=== PATIENT | female | born 1990 ===

== ENCOUNTER 2018-01-12 09:37 | Emergency (ER) | payer MEDICAID, OTHER ==
[2016-04-29 00:10] VITALS: BMI 24.6
[2018-01-12] MEDS ORDERED: Lactated Ringer's 1,000 ML IV ONE (10:55)
--- NOTE | 2018-01-12 11:35 | OBHP ---
Datetime: 01/12/2018 11:28 IP Chief Complaint Other: back and righ tleg pain Admit Comment, IP Provider: _ 34 wks transfer to [place] reports has not recieged any prencta l cre. pt preots she was told there is a cyst. pt preort having back pain that strated htis brandi ordonez ramping in nature, every 10 minutes 09/15 denie sany lof, vb, +FM. pt preorts rihgt lower leg pain sin e her and dneis any cp, sob, dizzyness. 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 PMH: dneies PSH: denes FHX: non tocnitryb MEDS: none SHX: julia eoth/tobacc/drugs NKDA A/P @_ 34 wks with back pain npo, ivf labs cbc, ua, urine drug screen abdominal us efw/ evalutefor dmitry; xmass lower extermity doppler importnace of care Pelvic Type - PN: Adequate Extremities - PN: Normal Abdomen - PN: Normal Back - PN: Normal Breast - PN: Not Done Lungs - PN: Normal Heart - PN: Normal Thyroid - PN: Normal Neurologic - PN: Normal HEENT - PN: Normal General - PN: Normal FHR - Baseline A Provider: 150 Membranes, Provider: Intact Contraction Comments Provider: irritlaibty Gestation - Est Wks by US: 34.0 EGA AdmitDate IP: 34.0 Vital Signs Provider: Reviewed; Within Normal Limits IP Chief Complaint: Other NICHD Variability Prov Fetus A: Moderate 6-25bpm FHR Category Provider Fetus A: Category I NICHD Decel Fetus A IP Provider: None Dilatation, Provider: 0 Effacement, Provider: 0 Station, Provider: -3 Genitourinary Exam: Normal DTRs - PN: Normal
[2018-01-12 12:43] LABS: BASO % 0.7 % (0.0-2.0); EOS # 0.1 K/uL (0.0-0.7); HEMOGLOBIN 10.1 g/dL (11.0-16.0); LYMPH # 1.6 K/uL (1.0-4.3); LYMPH % 23.5 % (20.0-40.0); MEAN CELL VOLUME 91.5 fL (81.0-99.0); MEAN CORPUSCULAR HEMOGLOBIN 30.4 pg (27.0-31.0); MEAN CORPUSCULAR HGB CONC 33.2 g/dL (33.0-37.0); MEAN PLATELET VOLUME 10.7 fL (7.2-11.7); MONO # 0.4 K/uL (0.0-0.8); MONO % 6.3 % (0.0-10.0); NEUT # 4.7 K/uL (1.8-7.0); NEUT % 68.5 % (50.0-75.0); RBC 3.32 Mil/uL (3.80-5.20); RED CELL DISTRIBUTION WIDTH 15.9 % (11.5-14.5); WHITE BLOOD COUNT 6.9 K/uL (4.8-10.8)
[2018-01-12 12:44] LABS: URINE BILIRUBIN NEGATIVE (NEGATIVE); URINE BLOOD NEGATIVE (NEGATIVE); URINE CLARITY Clear (Clear); URINE COLOR Straw (YELLOW); URINE GLUCOSE (UA) NORMAL (Normal)
[2018-01-12 12:45] LABS: SQUAMOUS EPITHIAL 1 /hpf (0-5); URINE LEUKOCYTE ESTERASE NEG Leu/uL (Negative); URINE PROTEIN NEGATIVE (NEGATIVE); URINE UROBILINOGEN NORMAL mg/dL (0.2-1.0)
[2018-01-12 13:07] LABS: BARBITURATES, UR NEGATIVE (NEGATIVE); BENZODIAZEPINES, UR NEGATIVE (NEGATIVE); OPIATES, UR NEGATIVE (NEGATIVE); PHENCYCLIDINE, UR NEGATIVE (NEGATIVE)
[2018-01-12 13:42] LABS: ALB/GLOB RATIO 1.1 (1.0-2.1); ALBUMIN 3.5 g/dL (3.5-5.0); ALT/SGPT 11 U/L (9-52); AST/SGOT 15 U/L (14-36); BLOOD UREA NITROGEN 4 mg/dL (7-17); CALCIUM 9.4 mg/dl (8.6-10.4); GFR NON-AFRICAN AMERICAN > 60
--- NOTE | 2018-01-12 15:51 | OBDCSUM ---
Datetime: 01/12/2018 15:21 Discharged to, Provider: Home Disch Instr Activity: Normal activity Disch Instr Diet: Regular Discharge Time: 01/12/2018 15:22 Disch Referrals: None Disch Activity Restrictions: Minimize stair-climbing; No sexual activity; Nothing in vagina - Interc ourse, tampons, douche Discharge Comment, Provider: importance of care clinic infomratio provided preterml labor precautions given
[2018-01-12 19:40] VITALS: BP 100/64; PULSE 90; RESP 20; TEMP 97.6
--- NOTE | 2018-01-13 14:06 | US ---
Indication: 30 week adnexal mass in ? with pain Comparison: None available. Technique: Real-time ultrasound was performed through the pelvis. Findings: There is a single living fetus in cephalic presentation. Amniotic fluid volume is within normal limits. Posterior fundal placenta. The placenta is not previa. There are no adnexal masses or cysts evident. Cervix length measures approximately 4.2 cm. Measurements and calculations: Fetus has a composite sonographic age of 33 weeks 6 days. This calculation is based on the biparietal diameter, head circumference, abdominal circumference, and femur length. Estimated heart rate 138 beats per min. Estimated weight 2362 g. Amniotic fluid index 17.6 cm. movements 2/2 breathing 2/2 tone 2/2 Amniotic fluid 2/2 Total score impression: 11/13 Impression: Single living fetus with a composite sonographic age of 33 weeks 6 days. Estimated heart rate 138 beats per min. Biophysical profile of 8 out of 8. The study was performed for the emergent evaluation of pain, and the whole anatomic survey of the fetus was not performed. This should be performed on an outpatient elective basis as clinically warranted. Preliminary impression was provided by [facility].
--- NOTE | 2018-01-15 12:03 | VASCLAB ---
Date of service: 01/12/2018 PROCEDURE: Lower Extremity Venous Duplex Exam. HISTORY: leg pain in r/o dvt PRIORS: None. TECHNIQUE: Bilateral common femoral, femoral, popliteal and posterior tibial, peroneal and great saphenous veins were evaluated. Flow was assessed with color Doppler, compressibility, assessment of phasic flow and augmentation response. Report prepared by Mee James, ALBERT, RVS FINDINGS: RIGHT: 1. Common Femoral Vein: 1.1. Compressibility - Fully compressible: Thrombus - None : Flow - Phasic: Augmentation -Normal: Reflux - None. 2. Femoral Vein: 2.1. Compressibility - Fully compressible: Thrombus - None : Flow - Phasic: Augmentation -Normal: Reflux - None. 3. Popliteal Vein: 3.1. Compressibility - Fully compressible: Thrombus - None : Flow - Phasic: Augmentation -Normal: Reflux - None. 4. Posterior Tibial Vein: 4.1. Compressibility - Fully compressible: Thrombus - None: Flow - Phasic: Augmentation -Normal: Reflux - None. 5. Peroneal Vein: 5.1. Compressibility - Fully compressible: Thrombus - None: Flow - Phasic: Augmentation -Normal: Reflux - None. 6. Great Saphenous Vein: 6.1. Compressibility - Fully compressible: Thrombus - None: Flow - Phasic: Augmentation - Normal: Reflux - None. LEFT: 1. Common Femoral Vein: 1.1. Compressibility - Fully compressible: Thrombus - None: Flow - Phasic: Augmentation -Normal: Reflux - None. 2. Femoral Vein: 2.1. Compressibility - Fully compressible: Thrombus - None: Flow - Phasic: Augmentation -Normal: Reflux - None. 3. Popliteal Vein: 3.1. Compressibility - Fully compressible: Thrombus - None : Flow - Phasic: Augmentation -Normal: Reflux - None. 4. Posterior Tibial Vein: 4.1. Compressibility - Fully compressible: Thrombus - None: Flow - Phasic: Augmentation -Normal: Reflux - None. 5. Peroneal Vein: 5.1. Compressibility - Fully compressible: Thrombus - None: Flow - Phasic: Augmentation -Normal: Reflux - None. 6. Great Saphenous Vein: 6.1. Compressibility - Fully compressible: Thrombus - None: Flow - Phasic: Augmentation - Normal: Reflux - None. OTHER FINDINGS: Right: None significant. Left: None significant. IMPRESSION: Right: No evidence of deep or superficial vein thrombosis of the right lower extremity. Normal valve function noted of the right side. Left: No evidence of deep or superficial vein thrombosis of the left lower extremity. Normal valve function noted of the left side.
== END 2018-01-12 15:37 | disposition home or self-care (01) ==
LOC: C.EROB 09:37
DX: O26.893 Other specified pregnancy related conditions, third trimester (principal); M54.9 Dorsalgia, unspecified; M79.604 Pain in right leg; Z3A.34 34 weeks gestation of pregnancy
CPT/HCPCS: 76815; 76818; 80053; 80324; 80345; 80346; 80349; 80353; 80358; 80361; 81001; 83992; 85025; 93970; 99283; J7120

== ENCOUNTER 2018-02-20 13:00 | Inpatient (IN) | payer MEDICAID ==
[2016-04-29 00:10] VITALS: BMI 24.6
[2018-02-20] MEDS ORDERED: Lactated Ringer's 1,000 ML IV ONE (13:23)
[2018-02-20] MEDS ORDERED: Penicillin G 5 Million Unit Vial IVPB ONE ×2 (13:25→13:45)
[2018-02-20] MEDS ORDERED: Lactated Ringer's 1,000 ML IV SCH (13:30)
[2018-02-20 13:54] LABS: BASO % 0.4 % (0.0-2.0); EOS % 0.3 % (0.0-4.0); LYMPH % 19.7 % (20.0-40.0); MEAN CORPUSCULAR HEMOGLOBIN 29.4 pg (27.0-31.0); MEAN CORPUSCULAR HGB CONC 33.3 g/dL (33.0-37.0); MEAN PLATELET VOLUME 11.7 fL (7.2-11.7); MONO # 0.5 K/uL (0.0-0.8); MONO % 4.6 % (0.0-10.0); NEUT # 7.5 K/uL (1.8-7.0); RBC 3.73 Mil/uL (3.80-5.20); RED CELL DISTRIBUTION WIDTH 16.9 % (11.5-14.5)
[2018-02-20 13:57] LABS: MEAN CELL VOLUME 88.2 fL (81.0-99.0)
[2018-02-20 14:16] LABS: BLOOD UREA NITROGEN 5 mg/dL (7-17); CALCIUM 9.3 mg/dl (8.6-10.4); GFR NON-AFRICAN AMERICAN > 60
[2018-02-20] MEDS ORDERED: Oxytocin 30 UNIT 30 UNITS/500 ML BAG IV ONE (14:32)
[2018-02-20] MEDS ORDERED: Oxycodone/Acetaminophen 5/325 mg Tab PO PRN (14:32)
[2018-02-20] MEDS ORDERED: Benzocaine/Menthol 20%-0.5% Topical Spray (60 ml) TOP PRN (14:32)
[2018-02-20 14:46] LABS: HEPATITIS B SURFACE AG Negative (NEGATIVE)
[2018-02-20] MEDS: Oxycodone/Acetaminophen 5/325 mg Tab PO PRN ×2 (14:52→23:06)
[2018-02-20 18:09] LABS: RAPID PLASMA REAGIN NONREACTIVE (NONREACTIVE)
[2018-02-20 19:01] LABS: SQUAMOUS EPITHIAL < 1 /hpf (0-5); URINE BACTERIA OCC (<OCC); URINE BILIRUBIN NEGATIVE (NEGATIVE); URINE BLOOD 3+ (NEGATIVE); URINE CLARITY Clear (Clear); URINE COLOR Red (YELLOW); URINE GLUCOSE (UA) NORMAL (Normal); URINE LEUKOCYTE ESTERASE NEG Leu/uL (Negative); URINE PROTEIN NEGATIVE (NEGATIVE); URINE UROBILINOGEN NORMAL mg/dL (0.2-1.0)
[2018-02-20 19:30] LABS: BARBITURATES, UR NEGATIVE (NEGATIVE); BENZODIAZEPINES, UR NEGATIVE (NEGATIVE); OPIATES, UR NEGATIVE (NEGATIVE); PHENCYCLIDINE, UR NEGATIVE (NEGATIVE)
--- NOTE | 2018-02-21 01:30 | OBDS ---
DELIVERY PERSONNEL Delivery Doctor: Prosper Henry MD Tyre Retreader: Giselle Viera RN Resident: Wes Zamora MATERNAL INFORMATION Delivery Anesthesia: None Medications in Delivery: Oxytocin 20 u 1 l LR Estimated Blood Loss (ml): 250 Placenta Cultured: No RN Comments: @1408,boy cried immediately,no abnormalities noted,12/15 Provider Comments: Uncomplicated vagoinal delivery of live male , ZANDER position over intact per ienum. Infant's mouth and nose bulb-sucitoned while observing delayed cord clamping. Cord then doubly clamped and cut after 60 seconds, infant placed on mother's abdomen Spntaneous delivery of placenta - grossly intact; 3 vessels Uterine exploration performed - uterus cleared of clots, contracted and firm Cervix, vagina, and perienuem inspected - no lacerations. and mother bonding; both in stabl e condition EBL 250 mL Weight 8lb 6oz 's 9/9 LABOR SUMMARY EDC: 02/23/2018 00:00 No. Babies in Womb: 1 Attempted: No Labor Anesthesia: None LABOR INFORMATION Onset of Labor: 02/20/2018 10:00 Complete Dilatation: 02/20/2018 13:30 Group B Beta Strep: Done, Result Unknown Antibiotics # of Doses: 0 Antibiotics Time of Last Dose: 0 Steroids Given: None Reason Steroids Not Administered: Not Applicable MEMBRANES Membranes Rupture Method: Spontaneous Rupture of Membranes: 02/20/2018 14:05 Length of Rupture (hrs): 0.05 Amniotic Fluid Color: Clear Amniotic Fluid Amount: Moderate Amniotic Fluid Odor: Normal STAGES OF LABOR Stage 1 hrs: 3 Stage 1 min: 30 Stage 2 hrs: 0 Stage 2 min: 38 Stage 3 hrs: 0 Stage 3 min: 10 Total Time in Labor hrs: 4 Total Time in Labor min: 18 VAGINAL DELIVERY Episiotomy: None Laceration Extension: N/A Laceration Type: None Initial Vag Sponge Count: 10 Final Vag Sponge Count: 10 Initial Vag Sharps Count: 0 Final Vag Sharps Count: 0 Sponge Count Correct: Yes Sharps Count Correct: N/A Count Comment: correct BABY A INFORMATION Infant Delivery Date/Time: 02/20/2018 14:08 Method of Delivery: Vaginal Born in Route : No : N/A Forceps: N/A Vacuum Extraction: N/A Shoulder Dystocia : No SHOULDER DYSTOCIA BABY A Infant Delivery Date/Time: 02/20/2018 14:08 PRESENTATION/POSITION BABY A Presentation: Cephalic Cephalic Presentation: Vertex Vertex Position: Left Occipital Anterior Breech Presentation: N/A PLACENTA INFORMATION BABY A Placenta Delivery Time : 02/20/2018 14:18 Placenta Method of Delivery: Spontaneous Placenta Status: Delivered SCORES BABY A Heart Rate 1 min: >100 bpm Resp Effort 1 min: Good Cry Reflex Irritability 1 min: Cough or Sneeze or Pulls Away Muscle Tone 1 min: Active Motion Color 1 min: Body [place], Extremities Blue SCORE 1 MIN: 9 Heart Rate 5 min: >100 bpm Resp Effort 5 min: Good Cry Reflex Irritability 5 min: Cough or Sneeze or Pulls Away Muscle Tone 5 min: Active Motion Color 5 min: Body [place], Extremities Blue SCORE 5 MIN: 9 INFORMATION BABY A Gestational Age at Delivery: 39.0 Gestational Status: Term Infant Outcome : Liveborn Condition : Stable Infant Sex: Male WEIGHT/LENGTH BABY A Birthweight (gms): 3825 Infant Weight (lb): 8 Infant Weight (oz): 7 Infant Length Inches: 20.00 Infant Length cms: 50.8 CORD INFORMATION BABY A No. Cord Vessels: 3 Nuchal Cord : N/A Cord Blood Taken: Yes Suction: Mouth; Nose
[2018-02-21] MEDS: Oxycodone/Acetaminophen 5/325 mg Tab PO PRN ×2 (04:57→20:34)
[2018-02-21 07:56] LABS: BASO # 0.1 K/uL (0.0-0.2); BASO % 1.2 % (0.0-2.0); EOS # 0.1 K/uL (0.0-0.7); EOS % 1.1 % (0.0-4.0); HEMOGLOBIN 9.4 g/dL (11.0-16.0); LYMPH # 2.9 K/uL (1.0-4.3); LYMPH % 31.4 % (20.0-40.0); MEAN CELL VOLUME 88.8 fL (81.0-99.0); MEAN CORPUSCULAR HEMOGLOBIN 29.5 pg (27.0-31.0); MEAN CORPUSCULAR HGB CONC 33.3 g/dL (33.0-37.0); MEAN PLATELET VOLUME 11.2 fL (7.2-11.7); MONO # 0.7 K/uL (0.0-0.8); MONO % 7.8 % (0.0-10.0); NEUT # 5.4 K/uL (1.8-7.0); NEUT % 58.5 % (50.0-75.0); NRBC % 0.1 % (0.0-2.0); RBC 3.19 Mil/uL (3.80-5.20); RED CELL DISTRIBUTION WIDTH 17.3 % (11.5-14.5); WHITE BLOOD COUNT 9.3 K/uL (4.8-10.8)
[2018-02-21] MEDS: Multiple Vitamins Tab PO SCH (10:08)
--- NOTE | 2018-02-21 10:50 | OBPPN ---
Datetime: 02/21/2018 07:30 PP Pain Prov: Within normal limits PP Nausea Prov: Denies PP Flatus Prov: Yes PP BM Prov: No PP Breasts Prov: Not Done PP Heart Prov: Normal PP Lungs Prov: Normal PP Abdomen/Uterus Prov: Normal PP Lochia Prov: Not Done PP Vulva/Perineum Prov: Not Done PP CVA Tenderness Prov: Not Done PP Extremities Prov: Not Done PP C/S Incision Prov: Not Applicable PP Progress Prov: Normal PP Comments Phys Exam Prov: Gen: NAD Heart: S1, S2, RRR Lung: CTA, B/L Abd: soft, non tender, no rebound, fundal height just at umbilicus level Ext: palpable pulses, no edema, no cyanosis PP Impression Prov: Normal progression PP Plan Prov: Continue present management; consult PP Progress Note 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 Patient is doing well. Ambulating in her room, tolerating her regular diet, drinking good amount o f water. Passed flatus, -BM. Minimal vaginal bleeding. Patient denied symptoms of chest pain, cough, N/V, fever, chills. Baby male is doing well. Needs circumcision for her baby boy. Vital signs stable. H/H stable. Normal PP progression Advance care Encourage ambulation, PO hydration Pain management consult Case reviewed and plan discussed with attending Dr Hever Myles, DO, PGY1 Above reviewed, I have personally seen and examined the patient and agree with above documentation . IP PP Procedures: None Vital Signs Provider PP: Reviewed; Within Normal Limits
[2018-02-22 00:33] VITALS: O2SAT 98
[2018-02-22] MEDS ORDERED: Influenza Vaccine 60 MCG/0.5 ML SYR (3 yr & up) IM ONE ×2 (06:03→10:00)
[2018-02-22 09:05] VITALS: BP 105/62; PULSE 80; RESP 18; TEMP 98.5
[2018-02-22] MEDS: Multiple Vitamins Tab PO SCH (09:09)
--- NOTE | 2018-02-22 09:28 | OBDCSUM ---
Datetime: 02/22/2018 08:51 Discharged to, Provider: Home Follow up at, Provider: cyril Disch Instr Activity: Normal activity Disch Instr Diet: Regular Discharge Instructions, Provider: Routine instructions given Discharge Diagnosis, Provider: Term Delivered Discharge Time: 02/22/2018 09:24 Follow up in weeks, Provider: 6 weeks Disch Referrals: None Contraception discussed, Prov: No Disch Activity Restrictions: No lifting; Minimize stair-climbing; No sexual activity; Nothing in vag jamie - [place], tampons, douche Discharge Comment, Provider: S/P PPD#2 1) VSS: AFEBRILE 2) ANEMIA- SCRIPT FOR IRON GIVEN TO THE PATIENT. 3) DISCHARGE HOME
[2018-02-22] MEDS ORDERED: Prenatal Multivit/Folic Acid/Iron Tab PO SCH (10:00)
== END 2018-02-22 13:45 | disposition home or self-care (01) | DRG 807 ==
LOC: C.EROB 13:00 → C.4D 13:17 → C.4M 16:10
PROVIDERS: ADMIT Obstetrics & Gynecology; ATTEND Obstetrics & Gynecology
PROC: 10E0XZZ Delivery of Products of Conception, External Approach (ICD-10-PCS; principal; 2018-02-20)
PROC: 0UJDXZZ Inspection of Uterus and Cervix, External Approach (ICD-10-PCS; 2018-02-20)
DX: O80 Encounter for full-term uncomplicated delivery (principal); Z37.0 Single live birth; Z3A.39 39 weeks gestation of pregnancy; D64.9 Anemia, unspecified

== ENCOUNTER 2018-03-17 14:53 | Observation (INO) | payer MEDICAID, OTHER ==
[2018-03-17 14:53] VITALS: BMI 24.6
[2018-03-17 15:28] LABS: BASO % 0.7 % (0.0-2.0); EOS # 0.1 K/uL (0.0-0.7); EOS % 2.9 % (0.0-4.0); LYMPH # 2.4 K/uL (1.0-4.3); LYMPH % 47.1 % (20.0-40.0); MEAN CORPUSCULAR HEMOGLOBIN 30.5 pg (27.0-31.0); MEAN CORPUSCULAR HGB CONC 33.3 g/dL (33.0-37.0); MONO # 0.3 K/uL (0.0-0.8); MONO % 5.8 % (0.0-10.0); NEUT # 2.2 K/uL (1.8-7.0); NEUT % 43.5 % (50.0-75.0); NRBC % 0.1 % (0.0-2.0); RBC 4.09 Mil/uL (3.80-5.20); RED CELL DISTRIBUTION WIDTH 17.6 % (11.5-14.5); WHITE BLOOD COUNT 5.1 K/uL (4.8-10.8)
[2018-03-17 15:30] LABS: HEMOGLOBIN 12.5 g/dL (11.0-16.0); MEAN CELL VOLUME 91.6 fL (81.0-99.0)
[2018-03-17 15:45] LABS: ALB/GLOB RATIO 1.5 (1.0-2.1); ALBUMIN 4.8 g/dL (3.5-5.0); ALT/SGPT 34 U/L (9-52); AST/SGOT 26 U/L (14-36); BLOOD UREA NITROGEN 11 mg/dL (7-17); CALCIUM 8.8 mg/dl (8.6-10.4); GFR NON-AFRICAN AMERICAN > 60
[2018-03-17] MEDS ORDERED: Iodixanol 320 MG/ML 100 ML BOTTLE IV ONE (16:01)
[2018-03-17 16:14] LABS: T3 1.75 nmol/L (1.49-2.60)
--- NOTE | 2018-03-17 17:05 | CT ---
Date of service: 03/17/2018 PROCEDURE: CT NECK WITH CONTRAST HISTORY: right sided neck mass COMPARISON: None available. TECHNIQUE: CT of the neck with intravenous contrast. Coronal and sagittal reformats generated. Intravenous contrast dose: Visipaque 320, 100 cc Radiation dose: Total exam DLP = 331.29 mGy-cm. This CT exam was performed using one or more of the following dose reduction techniques: Automated exposure control, adjustment of the mA and/or kV according to patient size, and/or use of iterative reconstruction technique. FINDINGS: NASOPHARYNX: Unremarkable. SUPRAHYOID NECK: Unremarkable oropharynx, oral cavity, parapharyngeal space and retropharyngeal space. Nonspecific prominence of the bilateral tonsillar pillars. INFRAHYOID NECK: Unremarkable larynx, hypopharynx, and supraglottic space. Vocal cords intact. See gland section below. MASS: None. GLANDS: Parotid and submandibular glands unremarkable. There is a large lesion at the right thyroid lobe measuring 4.1 by 2.5 x 3.3 cm with heterogeneous enhancement this may represent goiter however other etiologies are not excluded including potential hemorrhage. Clinically correlate further. Nuclear thyroid scan with uptake will be affected by as needed contrast enhanced of the neck if utilized for follow-up.. LYMPH NODES: Normal. No lymphadenopathy. CERVICAL SPINE: No fracture or focal lesion. VASCULAR STRUCTURES: Unremarkable. OTHER FINDINGS: None. IMPRESSION: 4.1 cm mass right thyroid lobe for which follow-up ultrasonography is recommended for added characterization. Hemorrhage within a right thyroid lobe lesion is included in the differential diagnosis. Follow-up ultrasonography should be able to differentiate. Nuclear thyroid scan should be considered though uptake measurements will be degraded by iodine from the current neck CT contrast injection. Nonspecific mild prominence of the tonsillar pillars bilaterally.
--- NOTE | 2018-03-17 17:55 | CP.PCM.HP ---
<Krzysztof Marvin - Last Filed: 03/17/18 19:36> History of Present Illness - History of Present Illness History of Present Illness: Medicine H&P CC: painless neck mass x3d HPI: This 27 year old Female with no PMHx presents c/o a painless neck mass for the past 3 days. She recently gave on 02/20/18, via non-complicated , to an 8.5lb 18" Male. She states that throughout her , she had morning sickness, and often vomited. Due to the vomiting, she believes that her right neck would intermittently become swollen. This was not worked-up during her , as she did not have a PMD. After giving on 02/20/18, any swelling of her R neck resolved, until 3 days ago. In the past 3d, she admits to tolerating solid foods, but has the sensation that food is getting stuck. She denies pain with swallowing, denies pain at the site of swelling, nor denies cough while eating. She has not taken anything at home to help with the swelling. She does not feel anything currently makes it better or worst. Denies fever, chills, headache, changes in vision, chest pain, palpitations, dyspnea, cough, abdominal pain, nausea/vomiting, diarrhea/constipation, dysuria, urinary frequency, or change in urinary stream. 12-point review of systems is otherwise negative without any additional acute complaints. PMHx: none PSHx: none Meds: none Allergies: NKDA FamHx: Mother alive and well at 70yo; Father in 50's 2/2 "accident" SocHx: denies ETOH, tobacco, or illicit drug use PMD: none Review of Systems: -Gen: No fever, No chills, No headache, No lethargy, No weakness. -HEENT: +R sided swelling, No dizziness, No change in vision, No change in hearing, No sore throat, No dysphagia, No nasal congestion, No mucous. -Cardio: No chest pain, No palpitations, No lower extremity edema, No orthopnea. -Resp: No cough, No dyspnea, No hemoptysis, No wheezing, No pain on inspiration. -GI: No abdominal pain, No nausea/vomiting, No diarrhea/constipation, No he matochezia, No hematemesis. -: No dysuria, No urinary freq, No incontinence, No hematuria, No change in urinary stream. -MSK: No back pain, No muscle weakness, No radiating pain. -Skin: No itching, No rash, No lesions. -Neuro: No confusion, No numbness, No tingling, No focal weakness, No radicular pain, No syncope. -Psych: No anxiety, No depression, No H/I, No S/I, No hallucinations. Present on Admission - Present on Admission Any Indicators Present on Admission: No History of DVT/PE: No History of Uncontrolled Diabetes: No Past Patient History - Past Social History Smoking Status: Never Smoked - PSYCHIATRIC Hx Substance Use: No - SURGICAL HISTORY Hx Surgeries: No - ANESTHESIA Hx Anesthesia: No Meds Allergies/Adverse Reactions: Allergies Allergy/AdvReac Type Severity Reaction Status Date / Time No Known Allergies Allergy Verified 03/17/18 15:10 Physical Exam - Additional Findings Additional findings: - Constitutional Appears: Non-toxic, No Acute Distress - Head Exam Head Exam: ATRAUMATIC, NORMAL INSPECTION - Eye Exam Eye Exam: EOMI, Normal appearance - ENT Exam ENT Exam: Mucous Membranes Dry - Neck Exam Neck Exam: absent: Tenderness, Lymphadenopathy +R thyroid neck mass, non-tender, non-fluctuant, 4x4cm - Respiratory Exam Respiratory Exam: NORMAL BREATHING PATTERN. absent: Rales, Wheezes - Cardiovascular Exam Cardiovascular Exam: Regular Rate, +S1, +S2 - GI/Abdominal Exam GI & Abdominal Exam: Soft, Normal Bowel Sounds. absent: Tenderness - Extremities Exam Extremities Exam: Full ROM, Normal Inspection. absent: Pedal Edema, Tenderness - Back Exam Back Exam: NORMAL INSPECTION. absent: CVA tenderness (L), CVA tenderness (R) - Neurological Exam Neurological Exam: Alert, Awake, Oriented x3 - Psychiatric Exam Psychiatric exam: Normal Affect, Normal Mood - Skin Skin Exam: Dry, Intact, Normal Color, Warm Results - Vital Signs Recent Vital Signs: Last Vital Signs Temp 98.3 F 03/17/18 15:06 Pulse 89 03/17/18 15:06 Resp 18 03/17/18 15:06 BP 122/76 03/17/18 15:06 Pulse Ox 98 03/17/18 15:06 - Labs Result Diagrams: 03/17/18 15:25 12/10/18 15:25 Labs: Laboratory Results - last 24 hr 03/17/18 03/17/18 15:25 15:25 WBC 5.1 RBC 4.09 Hgb 12.5 D Hct 37.5 MCV 91.6 D MCH 30.5 MCHC 33.3 RDW 17.6 H Plt Count 170 MPV 11.0 Neut % (Auto) 43.5 L Lymph % (Auto) 47.1 H [place] % (Auto) 5.8 Eos % (Auto) 2.9 Baso % (Auto) 0.7 Neut # (Auto) 2.2 Lymph # (Auto) 2.4 [place]itus # (Auto) 0.3 Eos # (Auto) 0.1 Baso # (Auto) 0.0 Sodium 139 Potassium 3.9 Chloride 102 Carbon Dioxide 25 Anion Gap 16 BUN 11 Creatinine 0.4 L Est GFR ( Amer) > 60 Est GFR (Non-Af Amer) > 60 Random Glucose 100 Calcium 8.8 Total Bilirubin 0.3 AST 26 ALT 34 Alkaline Phosphatase 125 Total Protein 8.0 Albumin 4.8 Globulin 3.3 Albumin/Globulin Ratio 1.5 Total T3 1.75 TSH 3rd Generation 0.70 Assessment & Plan - Assessment and Plan (Free Text) Assessment: Painless Neck Mass -ENT consult, Dr. Castorena, f/u recs Dr. Castorena recommends US guided FNA w/biopsy -Gen Surg consult, Dr. Shahid, f/u recs -Endo consult, Dr. Perry, f/u recs -f/u thyroid US -CT Neck- 4.1 cm mass right thyroid lobe for which follow-up ultrasonography is recommended for added characterization. Hemorrhage within a right thyroid lobe lesion is included in the differential diagnosis. Follow-up ultrasonography should be able to differentiate. Nuclear thyroid scan should be considered though uptake measurements will be degraded by iodine from the current neck CT contrast injection. Nonspecific mild prominence of the tonsillar pillars bilaterally. see full report -Decadron 10mg IVP given in ED -Start Decadron 4mg IVP q12H -TSH 0.70 / T3 total 1.75 -- WNL Prophylaxis SCDs Full liquid diet Pepcid 40mg PO qD Case discussed with Dr. Hemalatha Marvin DO, PGY3 - Date & Time Date: 03/17/18 Time: 17:57 <Krzysztof Penny H - Last Filed: 03/18/18 07:23> Results - Vital Signs Recent Vital Signs: Last Vital Signs Temp 98.2 F 03/17/18 23:10 Pulse 75 03/18/18 01:00 Resp 20 03/17/18 23:10 BP 101/62 03/17/18 23:10 Pulse Ox 96 03/17/18 23:10 - Labs Result Diagrams: 03/18/18 07:03 03/17/18 15:25 Labs: Laboratory Results - last 24 hr 03/17/18 03/17/18 03/18/18 15:25 15:25 07:03 WBC 5.1 5.9 RBC 4.09 4.17 Hgb 12.5 D 12.6 Hct 37.5 38.0 MCV 91.6 D 91.1 MCH 30.5 30.3 MCHC 33.3 33.3 RDW 17.6 H 17.7 H Plt Count 170 184 MPV 11.0 11.8 H Neut % (Auto) 43.5 L 78.5 H Lymph % (Auto) 47.1 H 20.5 Titus % (Auto) 5.8 0.9 Eos % (Auto) 2.9 0.0 Baso % (Auto) 0.7 0.1 Neut # (Auto) 2.2 4.6 Lymph # (Auto) 2.4 1.2 [place]itus # (Auto) 0.3 0.1 Eos # (Auto) 0.1 0.0 Baso # (Auto) 0.0 0.0 Sodium 139 Potassium 3.9 Chloride 102 Carbon Dioxide 25 Anion Gap 16 BUN 11 Creatinine 0.4 L Est GFR ( Amer) > 60 Est GFR (Non-Af Amer) > 60 Random Glucose 100 Calcium 8.8 Total Bilirubin 0.3 AST 26 ALT 34 Alkaline Phosphatase 125 Total Protein 8.0 Albumin 4.8 Globulin 3.3 Albumin/Globulin Ratio 1.5 Total T3 1.75 TSH 3rd Generation 0.70 Attending/Attestation - Attestation I have personally seen and examined this patient.: Yes I have fully participated in the care of the patient.: Yes I have reviewed all pertinent clinical information: Yes Notes (Text): 03/18/18 07:18 Medical attending: Patient was seen and examined by me. Agree with the above note by the residents - the patient was not in any acute distress when I came and saw the patient. There is a neck mass on the right lower aspect of the neck. On gross visualization it is visible. Non tender, and it soft. The skin is not discolored. There has already been a CT scan done by the ER showing the di mensions. TSH was in the normal range. She denied difficultu with breathing, denied coughing sensation. Will check thyroid U/S as well as get surgical and endocrine evaluation Krzysztof Penny
--- NOTE | 2018-03-17 18:13 | C.PDOC ---
History Of Present Illness 27 y/o female presents to the ED with complaints of growing neck mass on the right side for the past 3 days. Of note patient is s/p 25 days ago, with no complications. Denies any cough, trauma, or difficulty breathing. States that she feels as if food gets stuck. Denies any palpitations or episodes of diaphoresis. Time Seen by Provider: 03/17/18 15:08 Chief Complaint (Nursing): ENT Problem History Per: Patient History/Exam Limitations: None Onset/Duration Of Symptoms: Days (x3) Current Symptoms Are (Timing): Still Present Quality (Mouth/Throat): Swelling Past Medical History Reviewed: Historical Data, Nursing Documentation, Vital Signs Vital Signs: Last Vital Signs Temp 98.3 F 03/17/18 15:06 Pulse 89 03/17/18 15:06 Resp 18 03/17/18 15:06 BP 122/76 03/17/18 15:06 Pulse Ox 98 03/17/18 15:06 - Medical History PMH: No Chronic Diseases Surgical History: No Surg Hx - [facility] Procedures DELIVERY OF PRODUCTS OF CONCEPTION, EXTERNAL APPROACH (02/20/18) INSPECTION OF UTERUS AND CERVIX, EXTERNAL APPROACH (02/20/18) REPAIR PERINEUM SKIN, EXTERNAL APPROACH (04/29/16) Family History: States: No Known Family Hx - Social History Hx Alcohol Use: No Hx Substance Use: No - Immunization History Hx Tetanus Toxoid Vaccination: Yes Hx Influenza Vaccination: No Hx Pneumococcal Vaccination: No Review Of Systems Except As Marked, All Systems Reviewed And Found Negative. Constitutional: Negative for: Fever, Chills, Sweats ENT: Positive for: Other (Right-sided neck mass, difficulty swallowing) Cardiovascular: Negative for: Chest Pain, Palpitations Respiratory: Negative for: Shortness of Breath Physical Exam - Physical Exam Appears: Non-toxic, No Acute Distress Skin: Normal Color, Warm, Dry Head: Atraumatic, Normacephalic Eye(s): bilateral: Normal Inspection, PERRL, EOMI Oral Mucosa: Moist Throat: No Erythema, No Exudate, No Drooling, Other (No stridor) Neck: Normal ROM, Other (Right side of neck w/ freely mobile soft mass, approximately 2 cm in diameter, mildly tender to palpation) Chest: Symmetrical Cardiovascular: Rhythm Regular, No Murmur Respiratory: Normal Breath Sounds, No Rales, No Rhonchi, No Wheezing Extremity: Bilateral: Atraumatic, Normal Color And Temperature Neurological/Psych: Oriented x3, Normal Speech ED Course And Treatment - Laboratory Results Result Diagrams: 03/17/18 15:25 03/17/18 15:25 O2 Sat by Pulse Oximetry: 98 (RA) Pulse Ox Interpretation: Normal - CT Scan/US CT neck/soft tissue Other Rad Studies (CT/US): Read By Radiologist, Radiology Report Reviewed CT/US Interpretation: Accession No. : [id number]. Patient Name / ID : JUAN RAMÍREZ / [id number]. Exam Date : 03/17/2018 16:23:05 ( Approved ). Study Comment : Sex / Age : F / 27Y. Creator : Christy Gore. Dictator : Eamon Rust MD. Transfer Table Operator : Contracts Attorney : Eamon Rust MD. Approver2 : Report Date : 03/17/2018 16:37:12. My Comment : . Date of service: 03/17/2018. PROCEDURE: CT NECK WITH CONTRAST. HISTORY: right sided neck mass. COMPARISON: None available. TECHNIQUE: CT of the neck with intravenous contrast. Coronal and sagittal reformats generated. Intravenous contrast dose: Visipaque 320, 100 cc. Radiation dose: Total exam DLP = 331.29 mGy-cm. This CT exam was performed using one or more of the following dose reduction techniques: Automated exposure control, adjustment of the mA and/or kV according to patient size, and/or use of iterative reconstruction technique. FINDINGS: NASOPHARYNX: Unremarkable. SUPRAHYOID NECK: Unremarkable oropharynx, oral cavity, parapharyngeal space and retropharyngeal space. Nonspecific prominence of the bilateral tonsillar pillars. INFRAHYOID NECK: Unremarkable larynx, hypopharynx, and supraglottic space. Vocal cords intact. See gland section below. MASS: None. GLANDS: Parotid and submandibular glands unremarkable. There is a large lesion at the right thyroid lobe measuring 4.1 by 2.5 x 3.3 cm with heterogeneous enhancement this may represent goiter however other etiologies are not excluded including potential hemorrhage. Clinically correlate further. Nuclear thyroid scan with uptake will be affected by as needed contrast enhanced of the neck if utilized for follow-up.. LYMPH NODES: Normal. No lymphadenopathy. CERVICAL SPINE: No fracture or focal lesion. VASCULAR STRUCTURES: Unremarkable. OTHER FINDINGS: None. IMPRESSION: 4.1 cm mass right thyroid lobe for which follow-up ultrasonography is recommended for added characterization. Hemorrhage within a right thyroid lobe lesion is included in the differential diagnosis. Follow-up ultrasonography should be able to differentiate. Nuclear thyroid scan should be considered though uptake measurements will be degraded by iodine from the current neck CT contrast injection. Nonspecific mild prominence of the ton sillar pillars bilaterally. Medical Decision Making Medical Decision Making: Impression: Right-sided neck mass Initial Plan: --CT Neck Soft Tissue --CMP --T3 --TSH --CBC CT shows mass in the right thyroid lobe. 17:[address] Castorena, reviewed imaging, recommends Decadron IVP and admission to tele for possible needle aspiration. Spoke to Dr. Penny, who will admit to his service. Disposition Counseled Patient/Family Regarding: Studies Performed, Diagnosis - Disposition Disposition: HOSPITALIZED Disposition Time: 17:42 Condition: STABLE - POA Present On Arrival: None - Clinical Impression Clinical Impression: Neck mass - Scribe Statement The provider has reviewed the documentation as recorded by the Linda Oliver Provider Attestation: All medical record entries made by the Linda were at my direction and personally dictated by me. I have reviewed the chart and agree that the record accurately reflects my personal performance of the history, physical exam, medical decision making, and the department course for this patient. I have also personally directed, reviewed, and agree with the discharge instructions and disposition.
[2018-03-17 20:22] VITALS: RESP 20
--- NOTE | 2018-03-17 20:47 | CP.PCM.CON ---
History of Present Illness - History of Present Illness History of Present Illness: Surgery Consult note. Dr. Shahid service 27yo F with no significant PMHx here for evaluation of Right neck mass. Patient states that she felt right neck fullness when she had morning sickness in June during the early stages of her . She had an uncomplicated vaginal delivery in February, 1 month ago. She is currently using formula and does not breast feed. She states that the right neck fullness had regressed after , however, the mass returned 3 days ago. She denies any dysphagia to liquids. Does report some mild globus sensation to solids. Denies any fevers or chills. No N/V/D. No CP/SOB. No difficulty breathing or speaking. No headaches. No urinary complaints. No bowel function complaints. PMHx: Denies PSHx: Denies Family Hx: non-contributory Social Hx: denies ETOH, Denies Tobacco, Denies illicit drugs. Recent vaginal delivery (Feb 2018). NKDA Review of Systems - Review of Systems All systems: reviewed and no additional remarkable complaints except - Constitutional Constitutional: absent: Chills, Fever - EENT Eyes: absent: Change in Vision Nose/Mouth/Throat: Neck Mass. absent: Epistaxis, Nasal Congestion, Change in Voice, Hoarsness, Odynophagia - Cardiovascular Cardiovascular: absent: Chest Pain, Dyspnea - Respiratory Respiratory: absent: Dyspnea, Pain on Inspiration, Chest Congestion - Gastrointestinal Gastrointestinal: Abdominal Pain. absent: Diarrhea, Hematemesis, Hematochezia, Nausea, Vomiting - Genitourinary Genitourinary: absent: Dysuria - Musculoskeletal Musculoskeletal: absent: Back Pain, Muscle Weakness, Neck Pain - Neurological Neurological: absent: Abnormal Gait, Dizziness, Headaches Past Patient History - Past Medical History & Family History Past Medical History?: No Past Family History: Reviewed and not pertinent - Past Social History Smoking Status: Never Smoked Alcohol: None Drugs: Denies - PSYCHIATRIC Hx Substance Use: No - SURGICAL HISTORY Hx Surgeries: No - ANESTHESIA Hx Anesthesia: No Meds Allergies/Adverse Reactions: Allergies Allergy/AdvReac Type Severity Reaction Status Date / Time No Known Allergies Allergy Verified 03/17/18 15:10 - Medications Medications: Current Medications Dexamethasone (Decadron Inj) 4 mg IVP Q12H RAJ Famotidine (Pepcid) 40 mg PO DAILY [facility] Influenza Virus Vaccine (Fluzone Quad [id number]) 60 mcg IM .ONCE ONE Stop: 03/18/18 10:01 Pneumococcal Polyvalent Vaccine (Pneumovax 23 Vaccine) 0.5 ml IM .ONCE ONE Stop: 03/18/18 10:01 Physical Exam - Constitutional Appears: Well, Non-toxic, No Acute Distress - Head Exam Head Exam: ATRAUMATIC, NORMAL INSPECTION, NORMOCEPHALIC - Eye Exam Eye Exam: EOMI, Normal appearance. absent: Scleral icterus - ENT Exam ENT Exam: Mucous Membranes Moist, Normal Exam, Normal External Ear Exam, Normal Oropharynx - Neck Exam Neck exam: Positive for: Thyromegaly Additional comments: Right neck mass: mobile, non-tender. No fluctuance. No induration. - Respiratory Exam Respiratory Exam: NORMAL BREATHING PATTERN. absent: Accessory Muscle Use, Respiratory Distress - Cardiovascular Exam Cardiovascular Exam: RRR. absent: JVD - GI/Abdominal Exam GI & Abdominal Exam: Soft. absent: Distended, Guarding, Rebound, Rigid, Tenderness - Extremities Exam Extremities exam: Positive for: normal inspection. Negative for: calf tenderness - Back Exam Back exam: NORMAL INSPECTION - Neurological Exam Neurological exam: Alert, Oriented x3 - Psychiatric Exam Psychiatric exam: Normal Affect, Normal Mood - Skin Skin Exam: Dry, Intact, Normal Color, Warm Results - Vital Signs Recent Vital Signs: Last Vital Signs Temp 98.2 F 03/17/18 20:21 Pulse 80 03/17/18 20:21 Resp 20 03/17/18 20:21 BP 109/71 03/17/18 20:21 Pulse Ox 98 03/17/18 20:21 - Labs Result Diagrams: 03/18/18 07:03 03/18/18 07:03 Labs: Laboratory Results - last 24 hr 03/17/18 03/17/18 15:25 15:25 WBC 5.1 RBC 4.09 Hgb 12.5 D Hct 37.5 MCV 91.6 D MCH 30.5 MCHC 33.3 RDW 17.6 H Plt Count 170 MPV 11.0 Neut % (Auto) 43.5 L Lymph % (Auto) 47.1 H Wells % (Auto) 5.8 Eos % (Auto) 2.9 Baso % (Auto) 0.7 Neut # (Auto) 2.2 Lymph # (Auto) 2.4 Wells # (Auto) 0.3 Eos # (Auto) 0.1 Baso # (Auto) 0.0 Sodium 139 Potassium 3.9 Chloride 102 Carbon Dioxide 25 Anion Gap 16 BUN 11 Creatinine 0.4 L Est GFR ( Amer) > 60 Est GFR (Non-Af Amer) > 60 Random Glucose 100 Calcium 8.8 Total Bilirubin 0.3 AST 26 ALT 34 Alkaline Phosphatase 125 Total Protein 8.0 Albumin 4.8 Globulin 3.3 Albumin/Globulin Ratio 1.5 Total T3 1.75 TSH 3rd Generation 0.70 Assessment & Plan - Assessment and Plan (Free Text) Assessment: 27yo F with Right Neck mass - CT soft tissue neck noted with evidence of a 4.1cm R thyroid lobe mass Plan: - F/u ENT recs - f/u Thyroid US - we will follow and make further recs as we follow patient's clinical course Further recs as per Dr. Zehra Larson PGY2 surgery
[2018-03-17] MEDS: Dexamethasone 4 mg/1 ml IVP SCH (22:17)
[2018-03-18 07:13] LABS: BASO % 0.1 % (0.0-2.0); HEMOGLOBIN 12.6 g/dL (11.0-16.0); LYMPH # 1.2 K/uL (1.0-4.3); LYMPH % 20.5 % (20.0-40.0); MEAN CELL VOLUME 91.1 fL (81.0-99.0); MEAN CORPUSCULAR HEMOGLOBIN 30.3 pg (27.0-31.0); MEAN CORPUSCULAR HGB CONC 33.3 g/dL (33.0-37.0); MEAN PLATELET VOLUME 11.8 fL (7.2-11.7); MONO # 0.1 K/uL (0.0-0.8); MONO % 0.9 % (0.0-10.0); NEUT # 4.6 K/uL (1.8-7.0); NEUT % 78.5 % (50.0-75.0); RBC 4.17 Mil/uL (3.80-5.20); RED CELL DISTRIBUTION WIDTH 17.7 % (11.5-14.5); WHITE BLOOD COUNT 5.9 K/uL (4.8-10.8)
--- NOTE | 2018-03-18 07:38 | CP.PCM.PN ---
Subjective - Date & Time of Evaluation Date of Evaluation: 03/18/18 Time of Evaluation: 06:45 - Subjective Subjective: General Surgery Pt seen and examined. No issues overnight. No pain. No complaints. Objective - Vital Signs/Intake and Output Vital Signs (last 24 hours): Temp Pulse Resp BP Pulse Ox 98.2 F 75 20 101/62 96 03/17/18 23:10 03/18/18 01:00 03/17/18 23:10 03/17/18 23:10 03/17/18 23:10 - Medications Medications: Current Medications Dexamethasone (Decadron Inj) 4 mg IVP Q12H RAJ Last Admin: 03/17/18 22:17 Dose: 4 mg Famotidine (Pepcid) 40 mg PO DAILY [facility] Influenza Virus Vaccine (Fluzone Quad [id number]) 60 mcg IM .ONCE ONE Stop: 03/18/18 10:01 Pneumococcal Polyvalent Vaccine (Pneumovax 23 Vaccine) 0.5 ml IM .ONCE ONE Stop: 03/18/18 10:01 - Labs Labs: 03/18/18 07:03 03/17/18 15:25 - Constitutional Appears: Non-toxic, No Acute Distress - Head Exam Head Exam: ATRAUMATIC, NORMOCEPHALIC - Eye Exam Eye Exam: EOMI. absent: Scleral icterus - Neck Exam Neck Exam: Full ROM. absent: Tenderness Additional comments: Palpable R thyrois mass - Respiratory Exam Respiratory Exam: NORMAL BREATHING PATTERN. absent: Accessory Muscle Use, Chest Wall Tenderness, Respiratory Distress - Cardiovascular Exam Cardiovascular Exam: RRR, +S1, +S2 - GI/Abdominal Exam GI & Abdominal Exam: Soft. absent: Distended, Tenderness - Extremities Exam Extremities Exam: absent: Calf Tenderness, Pedal Edema - Neurological Exam Neurological Exam: Alert, Awake, Oriented x3 - Skin Skin Exam: Dry, Warm Assessment and Plan - Assessment and Plan (Free Text) Assessment: 27F with Right thyroid mass Plan: - CT soft tissue neck noted with evidence of a 4.1cm R thyroid lobe mass - f/u thyroid US read - f/u endocrine recs - f/u with ENT about needle aspiration - f/u labs D/W Dr. Zehra Horner PGY4
[2018-03-18 07:50] LABS: ALB/GLOB RATIO 1.3 (1.0-2.1); ALBUMIN 4.6 g/dL (3.5-5.0); ALT/SGPT 41 U/L (9-52); AST/SGOT 38 U/L (14-36); BLOOD UREA NITROGEN 9 mg/dL (7-17); CALCIUM 9.5 mg/dl (8.6-10.4); GFR NON-AFRICAN AMERICAN > 60
[2018-03-18 08:33] VITALS: BP 106/66; TEMP 97.7; O2SAT 97
[2018-03-18] MEDS ORDERED: Pneumococcal 23-Valent Vaccine IM ONE (10:00)
[2018-03-18] MEDS ORDERED: Influenza Vaccine 60 MCG/0.5 ML SYR (3 yr & up) IM ONE (10:00)
[2018-03-18] MEDS: Dexamethasone 4 mg/1 ml IVP SCH (10:22)
--- NOTE | 2018-03-18 13:00 | CON ---
DATE: 03/18/2018 REQUESTING PHYSICIAN: ER. HISTORY: This is a 27-year-old female who presented to the ER with expanding mass on the right neck. She has had that before since she delivered about four weeks ago. At this point, the patient has some dysphagia; however, no shortness of breath. The patient is admitted to the hospital. PAST MEDICAL HISTORY: As noted in the chart by me. MEDICATIONS: As noted in the chart by me. PHYSICAL EXAMINATION: HEAD: Atraumatic and normocephalic. FACE: Good facial movements bilaterally. CONSTITUTIONAL: Well fed, well nourished. COMMUNICATIONS: Communicates well and appropriately. EXTERNAL NOSE AND EARS: No masses. No lesions. No erythema. No edema. INTERNAL NOSE AND EARS: Deviated septum. No masses. No lesions. No erythema. No edema. ORAL CAVITY AND OROPHARYNX: No masses. No lesions. No erythema. No edema. LIPS AND GUMS: No masses. No lesions. No erythema. No edema. NECK: Supple. THYROID: Enlarged thyroid lobe on the right. LYMPH NODES: No lymphadenopathy of the neck. ASSESSMENT: 1. Enlarged thyroid lobe. 2. Deviated septum. PLAN: Since the patient has some difficulty swallowing, advised fine-needle aspiration of the node to take out the blood, so that the patient's swallowing improves. After that, care is as per Dr. Shahid, who is a thyroid surgeon. Cecil Castorena MD
[2018-03-18 14:07] LABS: INR 1.1; PROTHROMBIN TIME 11.9 SECONDS (9.7-12.2)
--- NOTE | 2018-03-18 14:36 | CP.PCM.DIS ---
<Herber Melton - Last Filed: 03/18/18 14:30> Provider - Provider Date of Admission: 03/17/18 17:41 Attending physician: Krzysztof Penny DO Consults: 03/17/18 17:32 Otolaryngology Consult Routine Consulting Provider: Cecil Castorena Consulting Physician: Cecil Castorena Reason for Consult: neck mass 03/17/18 18:40 General Surgery Consult Routine Comment: Consulting Provider: Jeff Shahid Consulting Physician: Jeff Shahid Reason for Consult: thyroid mass 03/17/18 18:41 Endocrinology Consult Routine Comment: Consulting Provider: Renee Perry Consulting Physician: Renee Perry Reason for Consult: thyroid mass 03/18/18 11:18 Radiology Consult Routine Comment: Consulting Provider: Allen Ontiveros Consulting Physician: Allen Ontiveros Reason for Consult: ultrasound guided fine needle aspiration of thyroid mass Time Spent in preparation of Discharge (in minutes): 45 Hospital Course - Lab Results Lab Results: Most Recent Lab Values WBC 5.9 K/uL (4.8-10.8) 03/18/18 07:03 RBC 4.17 Mil/uL (3.80-5.20) 03/18/18 07:03 Hgb 12.6 g/dL (11.0-16.0) 03/18/18 07:03 Hct 38.0 % (34.0-47.0) 03/18/18 07:03 MCV 91.1 fL (81.0-99.0) 03/18/18 07:03 MCH 30.3 pg (27.0-31.0) 03/18/18 07:03 MCHC 33.3 g/dL (33.0-37.0) 03/18/18 07:03 RDW 17.7 % (11.5-14.5) H 03/18/18 07:03 Plt Count 184 K/uL (130-400) 03/18/18 07:03 MPV 11.8 fL (7.2-11.7) H 03/18/18 07:03 Neut % (Auto) 78.5 % (50.0-75.0) H 03/18/18 07:03 Lymph % (Auto) 20.5 % (20.0-40.0) 03/18/18 07:03 [place] % (Auto) 0.9 % (0.0-10.0) 03/18/18 07:03 Eos % (Auto) 0.0 % (0.0-4.0) 03/18/18 07:03 Baso % (Auto) 0.1 % (0.0-2.0) 03/18/18 07:03 Neut # (Auto) 4.6 K/uL (1.8-7.0) 03/18/18 07:03 Lymph # (Auto) 1.2 K/uL (1.0-4.3) 03/18/18 07:03 [place] # (Auto) 0.1 K/uL (0.0-0.8) 03/18/18 07:03 Eos # (Auto) 0.0 K/uL (0.0-0.7) 03/18/18 07:03 Baso # (Auto) 0.0 K/uL (0.0-0.2) 03/18/18 07:03 PT 11.9 SECONDS (9.7-12.2) 03/18/18 13:54 INR 1.1 03/18/18 13:54 APTT 31 SECONDS (21-34) 03/18/18 13:54 Sodium 138 mmol/L (132-148) 03/18/18 07:03 Potassium 4.1 mmol/L (3.6-5.2) 03/18/18 07:03 Chloride 100 mmol/L (98-107) 03/18/18 07:03 Carbon Dioxide 23 mmol/L (22-30) 03/18/18 07:03 Anion Gap 20 (10-20) 03/18/18 07:03 BUN 9 mg/dL (7-17) 03/18/18 07:03 Creatinine 0.4 mg/dL (0.7-1.2) L 03/18/18 07:03 Est GFR ( Amer) > 60 03/18/18 07:03 Est GFR (Non-Af Amer) > 60 03/18/18 07:03 Random Glucose 132 mg/dL (65-105) H 03/18/18 07:03 Calcium 9.5 mg/dl (8.6-10.4) 03/18/18 07:03 Phosphorus 4.2 mg/dL (2.5-4.5) 03/18/18 07:03 Magnesium 1.7 mg/dL (1.6-2.3) 03/18/18 07:03 Total Bilirubin 0.4 mg/dL (0.2-1.3) 03/18/18 07:03 AST 38 U/L (14-36) H D 03/18/18 07:03 ALT 41 U/L (9-52) 03/18/18 07:03 Alkaline Phosphatase 110 U/L (38-126) 03/18/18 07:03 Total Protein 8.0 g/dL (6.3-8.3) 03/18/18 07:03 Albumin 4.6 g/dL (3.5-5.0) 03/18/18 07:03 Globulin 3.4 gm/dL (2.2-3.9) 03/18/18 07:03 Albumin/Globulin Ratio 1.3 (1.0-2.1) 03/18/18 07:03 Total T3 1.75 nmol/L (1.49-2.60) 03/17/18 15:25 TSH 3rd Generation 0.70 mIU/L (0.46-4.68) 03/17/18 15:25 - Hospital Course Hospital Course: Upon Admission This 27 year old Female with no PMHx presents c/o a painless neck mass for the past 3 days. She recently gave on 02/20/18, via non-complicated , to an 8.5lb 18" Male. She states that throughout her , she had morning sickness, and often vomited. Due to the vomiting, she believes that her right neck would intermittently become swollen. This was not worked-up during her , as she did not have a PMD. After giving on 02/20/18, any swelling of her R neck resolved, until 3 days ago. In the past 3d, she admits to tolerating solid foods, but has the sensation that food is getting stuck. She denies pain with swallowing, denies pain at the site of swelling, nor denies cough while eating. She has not taken anything at home to help with the swellin g. She does not feel anything currently makes it better or worst. Denies fever, chills, headache, changes in vision, chest pain, palpitations, dyspnea, cough, abdominal pain, nausea/vomiting, diarrhea/constipation, dysuria, urinary frequency, or change in urinary stream. 12-point review of systems is otherwise negative without any additional acute complaints. Hospital Course Patient is a 27 yo female admitted to hospital for painless neck mass. On CT imaging it was demonstrated that patient had a 4.1 cm mass right thyroid lobe. ENT/Surgery/Endocrinolgy were consulted. TSH studies were normal. Patient only had complaint of difficulty swallowing at certain times not all the time. U/S of thyroid was ordered. Surgery evaluated patient and reviewed imaging and recomme nded outpatient followup for thyroid surgery. ENT evaluated patient and recommended U/S guided FNA of thyroid gland. Discussion with Dr. Ontiveros was had by me and was told that patient will need outpatient for this procedure after she meets her primary medical doctor and has a script for U/S FNA for thyroid mass procedure. Patient has followup appointment with [facility] on Apr 10 2018 at 9:00 am. Discharge Plan 1. Patient is stable for discharge to home as per Dr. Penny 2. Patient will need to follow up with [facility] April 10 at 9:00am. Patient will require 2 prescriptions. 1st prescription is for Dr. Ontiveros for ultrasound guided FNA for thyroid mass. 2nd prescription is for Dr. Shahid for surgical procedure to remove thyroid mass. 3. Patient will take Colace 100mg twice a day until she has bowel movement. If patient does not have bowel movement she can try Miralax over the counter. Patient has been educated in detail with criminal intelligence analyst about the medications she will take leaving hospital and the followup appointment she has. 4. Patient stated she understands the plan and was able to reiterate to me in simple term. 5. Patient is educated to return to hospital if symptoms worsen or recur. 1. El paciente se encuentra estable para el nessa hospitalaria segn el Dr. Penny 2. El paciente deber realizar un seguimiento en la clnica de noemi del vecindario el 3 de enero a las 9:00 am. Paciente requerir 2 recetas. La primera receta es para el Dr. Ontiveros para la FNA guiada por ultrasonido para la masa tiroidea. La segunda receta es para el Dr. Shahid para un procedimiento quirrgico para extirpar la masa tiroidea. 3. La paciente hemant Colace 100 mg dos veces al da hasta que tenga movimiento intestinal. Si el paciente no tiene movimiento intestinal, puede probar Miralax sin receta. La paciente crabtree sido educada en detalle con el traductor sobre los medicamentos que hemant al salir del hospital y la shelbi de seguimiento que tiene. 4. La paciente dijo que entiende el plan y me lo abdon en un trmino simple. 5. Se educa al paciente para que regrese al hospital si los sntomas empeoran o reaparecen Disclaimer: Written above is a synopsis of patient's current hospital admission. For full report refer to EMR. Discharge Exam - Head Exam Head Exam: ATRAUMATIC, NORMAL INSPECTION, NORMOCEPHALIC - Eye Exam Eye Exam: EOMI, Normal appearance. absent: Nystagmus, Scleral icterus - ENT Exam ENT Exam: Mucous Membranes Moist Additional comments: palpable mass in right middle neck - Respiratory Exam Respiratory Exam: NORMAL BREATHING PATTERN. absent: Decreased Breath Sounds, Rhonchi, Wheezes, Respiratory Distress - Cardiovascular Exam Cardiovascular Exam: REGULAR RHYTHM, +S1, +S2. absent: Tachycardia - GI/Abdominal Exam GI & Abdominal Exam: Normal Bowel Sounds, Soft. absent: Diminished Bowel Sounds, Distended, Firm, Guarding, Tenderness - Extremities Exam Extremities exam: normal inspection - Neurological Exam Neurological exam: Alert, Oriented x3 - Psychiatric Exam Psychiatric exam: Normal Affect, Normal Mood - Skin Skin Exam: Intact, Normal Color Discharge Plan - Discharge Medications Prescriptions: Docusate [Colace] 100 mg PO BID #6 cap - Follow Up Plan Condition: STABLE Disposition: HOME/ ROUTINE Instructions: Full Liquid Diet, Docusate Additional Instructions: 1. Patient is stable for discharge to home as per Dr. Penny 2. Patient will need to follow up with [facility] April 10 at 9:00am. Patient will require 2 prescriptions. 1st prescription is for Dr. Ontiveros for ultrasound guided FNA for thyroid mass. 2nd prescription is for Dr. Shahid for surgical procedure to remove thyroid mass. 3. Patient will take Colace 100mg twice a day until she has bowel movement. If patient does not have bowel movement she can try Miralax over the counter. Patient has been educated in detail with criminal intelligence analyst about the medications she will take leaving hospital and the followup appointment she has. 4. Patient stated she understands the plan and was able to reiterate to me in simple term. 5. Patient is educated to return to hospital if symptoms worsen or recur. 1. El paciente se encuentra estable para el nessa hospitalaria segn el Dr. Penny 2. El paciente deber realizar un seguimiento en la clnica de noemi del vecindario el 3 de enero a las 9:00 am. Paciente requerir 2 recetas. La primera receta es para el Dr. Ontiveros para la FNA guiada por ultrasonido para la masa tiroidea. La segunda receta es para el Dr. Shahid para un procedimiento quirrgico para extirpar la masa tiroidea. 3. La paciente hemant Colace 100 mg dos veces al da hasta que tenga movimiento intestinal. Si el paciente no tiene movimiento intestinal, puede probar Miralax sin receta. La paciente crabtree sido educada en detalle con el traductor sobre los medicamentos que hemant al salir del hospital y la shelbi de seguimiento que tiene. 4. La paciente dijo que entiende el plan y me lo abdon en un trmino simple. 5. Se educa al paciente para que regrese al hospital si los sntomas empeoran o reaparecen. Referrals: [facility] [Provider Group] [facility] [Outside] Jeff Shahid MD [Staff Provider] - <Krzysztof Penny - Last Filed: 03/18/18 17:39> Provider - Provider Date of Admission: 03/17/18 17:41 Attending physician: Krzysztof Penny DO Consults: 03/17/18 17:32 Otolaryngology Consult Routine Consulting Provider: Cecil Castorena Consulting Physician: Cecil Castorena Reason for Consult: neck mass 03/17/18 18:40 General Surgery Consult Routine Comment: Consulting Provider: Jeff Shahid Consulting Physician: Jeff Shahid Reason for Consult: thyroid mass 03/17/18 18:41 Endocrinology Consult Routine Comment: Consulting Provider: Renee Perry Consulting Physician: Renee Perry Reason for Consult: thyroid mass 03/18/18 11:18 Radiology Consult Routine Comment: Consulting Provider: Allen Ontiveros Consulting Physician: Allen Ontiveros Reason for Consult: ultrasound guided fine needle aspiration of thyroid mass Hospital Course - Lab Results Lab Results: Most Recent Lab Values WBC 5.9 K/uL (4.8-10.8) 03/18/18 07:03 RBC 4.17 Mil/uL (3.80-5.20) 03/18/18 07:03 Hgb 12.6 g/dL (11.0-16.0) 03/18/18 07:03 Hct 38.0 % (34.0-47.0) 03/18/18 07:03 MCV 91.1 fL (81.0-99.0) 03/18/18 07:03 MCH 30.3 pg (27.0-31.0) 03/18/18 07:03 MCHC 33.3 g/dL (33.0-37.0) 03/18/18 07:03 RDW 17.7 % (11.5-14.5) H 03/18/18 07:03 Plt Count 184 K/uL (130-400) 03/18/18 07:03 MPV 11.8 fL (7.2-11.7) H 03/18/18 07:03 Neut % (Auto) 78.5 % (50.0-75.0) H 03/18/18 07:03 Lymph % (Auto) 20.5 % (20.0-40.0) 03/18/18 07:03 [place] % (Auto) 0.9 % (0.0-10.0) 03/18/18 07:03 Eos % (Auto) 0.0 % (0.0-4.0) 03/18/18 07:03 Baso % (Auto) 0.1 % (0.0-2.0) 03/18/18 07:03 Neut # (Auto) 4.6 K/uL (1.8-7.0) 03/18/18 07:03 Lymph # (Auto) 1.2 K/uL (1.0-4.3) 03/18/18 07:03 [place] # (Auto) 0.1 K/uL (0.0-0.8) 03/18/18 07:03 Eos # (Auto) 0.0 K/uL (0.0-0.7) 03/18/18 07:03 Baso # (Auto) 0.0 K/uL (0.0-0.2) 03/18/18 07:03 PT 11.9 SECONDS (9.7-12.2) 03/18/18 13:54 INR 1.1 03/18/18 13:54 APTT 31 SECONDS (21-34) 03/18/18 13:54 Sodium 138 mmol/L (132-148) 03/18/18 07:03 Potassium 4.1 mmol/L (3.6-5.2) 03/18/18 07:03 Chloride 100 mmol/L (98-107) 03/18/18 07:03 Carbon Dioxide 23 mmol/L (22-30) 03/18/18 07:03 Anion Gap 20 (10-20) 03/18/18 07:03 BUN 9 mg/dL (7-17) 03/18/18 07:03 Creatinine 0.4 mg/dL (0.7-1.2) L 03/18/18 07:03 Est GFR ( Amer) > 60 03/18/18 07:03 Est GFR (Non-Af Amer) > 60 03/18/18 07:03 Random Glucose 132 mg/dL (65-105) H 03/18/18 07:03 Calcium 9.5 mg/dl (8.6-10.4) 03/18/18 07:03 Phosphorus 4.2 mg/dL (2.5-4.5) 03/18/18 07:03 Magnesium 1.7 mg/dL (1.6-2.3) 03/18/18 07:03 Total Bilirubin 0.4 mg/dL (0.2-1.3) 03/18/18 07:03 AST 38 U/L (14-36) H D 03/18/18 07:03 ALT 41 U/L (9-52) 03/18/18 07:03 Alkaline Phosphatase 110 U/L (38-126) 03/18/18 07:03 Total Protein 8.0 g/dL (6.3-8.3) 03/18/18 07:03 Albumin 4.6 g/dL (3.5-5.0) 03/18/18 07:03 Globulin 3.4 gm/dL (2.2-3.9) 03/18/18 07:03 Albumin/Globulin Ratio 1.3 (1.0-2.1) 03/18/18 07:03 Total T3 1.75 nmol/L (1.49-2.60) 03/17/18 15:25 TSH 3rd Generation 0.70 mIU/L (0.46-4.68) 03/17/18 15:25 Attending/Attestation - Attestation I have personally seen and examined this patient.: Yes I have fully participated in the care of the patient.: Yes I have reviewed all pertinent clinical information, including history, physical exam and plan: Yes Notes (Text): Medical attending: Patient was seen and examined by me as well with the medical receptionist assistant The patient was not in any acute distress when I came and saw her with the medical staff Surgical team had already reviewed the U/S that was done and advised that the patient be discharged and that she would need follow up with them in the near future. She will need to go to appoient at [facility] hear at [facility] and from there has an RX for U/S fine need aspiration and also will need to see surgery for removal of this thyroid mass. She again says it is non-tender. No difficulty breathing, no coughing, no wheezing, speaking in full sentences Krzysztof Penny
[2018-03-18 15:01] VITALS: PULSE 89
--- NOTE | 2018-03-18 15:40 | US ---
Date of service: 03/17/2018 HISTORY: Thyroid Neck mass TECHNIQUE: Sonographic evaluation of the thyroid gland. COMPARISON: FINDINGS: RIGHT LOBE: Measures 6.2 x 3.2 x 3.8 cm. Nodules: Large mid to lower pole heterogeneous complex mass mostly solid-appearing measuring 4.1 x 2.5 x 3.5 cm. Mass appear circumscribed. Most of the vascularity is draping around the mass rather than within the mass. LEFT LOBE: Measures 4.6 x 1.0 x 1.3 cm. Normal echotexture and flow. Nodules: None ISTHMUS: Measures 0.2 cm. Normal echotexture and flow. Nodules: None OTHER FINDINGS: None . IMPRESSION: Large right thyroid complex, predominantly solid appearing mass measuring up to 4.1 cm as above. Consider fine-needle aspiration biopsy for histology. No additional nodules or masses noted.
--- NOTE | 2018-03-19 15:58 | CON ---
ENDOCRINE CONSULT DATE: 03/18/2018 LOCATION: Room 663. HISTORY OF PRESENT ILLNESS: This is a 27-year-old female with recent evaluation for a right neck mass, and is now being referred for endocrine evaluation and management. PAST MEDICAL HISTORY: Essentially unremarkable. Had recent normal spontaneous vaginal delivery a few weeks ago with uncomplicated course . FAMILY HISTORY: No known thyroid endocrinopathy. SOCIAL HISTORY: The patient has supportive family. No known substance use. REVIEW OF SYSTEMS: Admits to episodic bouts of dizziness and light headedness with generalized body weakness, also admits to occasional dysphagia and odynophagia, especially with eating solid foods. No choking sensations noted otherwise. No chest pains or palpitations. Her oral intake has been variable, but improved with no alterations of bowel and her urinary patterns. PHYSICAL EXAMINATION: GENERAL: This is an average build female, in no apparent distress. VITAL SIGNS: With a blood pressure of 140/80, pulse of 70 beats per minute and regular, temperature 98, respirations 20. Height is 5 feet. Weight is 143 pounds. HEENT: Head: Normocephalic. Eyes: Anicteric with pink conjunctivae. Funduscopy not possible at this time. Ears, nose, and throat otherwise normal. NECK: Supple. There is a large nodular thyromegaly right greater than left, which is firm and nontender and palpable mass in the right lobe as noted. No thyroid bruits nor any cervical adenopathy. CARDIOPULMONARY: Adynamic precordium. S1 and S2, rapid and regular. LUNGS: Clear to auscultation. ABDOMEN: Flat and soft with positive bowel sounds. EXTREMITIES: No peripheral edema. Pulses are +2 bilaterally. LABORATORY DATA: Chemistry showed a BUN of 9, sodium 138, potassium 4.1, chloride 100, CO2 of 23, glucose 132, and creatinine 0.4. Her TSH level is 0.7. IMAGING: Her thyroid ultrasound showed a right lobe measuring 6.2 x 3.2 and 3.8 cm with a large heterogeneous complex mass, solid appearing measuring 4.1 x 2.5 x 3.5 cm. The left lobe measures 4.6 x 1 x 1.3 cm. ASSESSMENT: This is a 27-year-old female with moderately enlarged multinodular goiter with a dominant complex mass in the right lobe with episodic compressive symptoms in the neck area as noted. She remains clinically and biochemically euthyroid at this time and there is no indication for levothyroxine replacement therapy. However, with the compressive symptoms present in the neck area with episodic odynophagia and dysphagia, she clearly will need fine needle aspiration biopsy of the right complex mass and subsequent surgical resection for decompression. PLAN OF MANAGEMENT: Concur with evaluation with General Surgery and ENT regarding the eventual need for fine needle aspiration biopsy followed by surgical resection of the right thyroid mass with at least a subtotal thyroidectomy with frozen section to exclude any underlying thyroid malignancy. Renee Perry MD
== END 2018-03-18 16:54 | disposition home or self-care (01) ==
LOC: C.ER 14:53 → C.9E 17:41 → C.6T 18:27
PROVIDERS: ADMIT Hospitalist; ATTEND Hospitalist
DX: O99.285 Endocrine, nutritional and metabolic diseases complicating the puerperium (principal); E04.2 Nontoxic multinodular goiter; J34.2 Deviated nasal septum; R13.10 Dysphagia, unspecified
CPT/HCPCS: 36415; 70491; 76536; 80053; 83735; 84100; 84443; 84480; 85025; 85610; 85730; 90471; 90674; 90732; 96374; 96376; 99285; G0378; J1100; Q9967

== ENCOUNTER 2018-04-28 08:53 | Day surgery (SDC) | payer OTHER, SELFPAY ==
[2018-04-11 10:12] VITALS: BMI 24.6
--- NOTE | 2018-04-28 10:46 | CP.SDSHP ---
Same Day Surgery H & P - History Proposed Procedure: US guided FNA of right thyroid nodule Pre-Op Diagnosis: right thyroid nodule - Allergies Allergies: Allergies No Known Allergies Allergy (Verified 04/25/18 08:29) - Impression Impression: Pt with a 3.5 cm right thyroid nodule. Plan US guided FNA. Pt. Evaluated Today:Candidate for Anesthesia & Procedure: No - Date & Time Date: 04/28/18 Time: 09:50 Short Stay Discharge - Short Stay Discharge Admitting Diagnosis/Reason for Visit: OTHER SPECIFIED DISORDERS OF THYROID Disposition: HOME/ ROUTINE
--- NOTE | 2018-04-28 10:47 | PCM.SURG1 ---
Surgeon's Initial Post Op Note - Surgeon's Notes Surgeon: Allen Ontiveros MD Recreational Resort Manager: NONE Type of Anesthesia: Local Pre-Operative Diagnosis: Right thyroid nodule Operative Findings: US showed a complex 3.5 cm right thyroid nodule Post-Operative Diagnosis: Right thyroid nodule Operation Performed: US guided FNA Specimen/Specimens Removed: 25 g FNA x 5 passes Estimated Blood Loss: EBL {In ML}: 1 Blood Products Given: N/A Drains Used: No Drains Post-Op Condition: Good Date of Surgery/Procedure: 04/28/18 Time of Surgery/Procedure: 10:30
--- NOTE | 2018-04-28 11:43 | US ---
PROCEDURE: Date of Procedure: 04/28/2018 PROCEDURE: 1. Ultrasound guided FNA of right thyroid nodule, CPT 61083 2. Ultrasound guidance for FNA, 39051 Medications: 3cc 1% Lidocaine HISTORY: Enlarged right thyroid nodule. TECHNIQUE: Following informed consent and procedure time-out, a limited ultrasound patient's neck confirmed the presence of a 3.5 cm complex right thyroid nodule which is predominantly solid. After the patient's neck was prepped and draped in the usual sterile fashion, the skin was anesthetized with 1% lidocaine. Ultrasound-guided fine needle aspiration was then performed of the dominant right thyroid nodule. A total of 5 passes were made into the nodule with 25 gauge needle under ultrasound guidance. The FNA specimen was sent for routine pathology and genetics . Post biopsy ultrasound showed no hematoma. IMPRESSION: Ultrasound-guided FNA of the dominant right thyroid nodule.
== END 2018-05-02 10:22 | disposition home or self-care (01) ==
LOC: C.SPRAD 08:53
PROVIDERS: ATTEND Surgery Surgical Critical Care
DX: E04.1 Nontoxic single thyroid nodule (principal)

== ENCOUNTER 2018-04-28 09:02 | Outpatient (CLI) | payer SELFPAY, OTHER | END 2018-04-28 09:03 | disposition home or self-care (01) | LOC: C.PAT 09:02 | DX: E04.1 Nontoxic single thyroid nodule (principal) ==

== ENCOUNTER 2018-05-12 05:43 | Observation (INO) | payer OTHER ==
[2018-04-28 09:30] VITALS: BMI 27.8
[2018-05-12] MEDS ORDERED: Propofol 10 mg/ml Inj (20 ML) ONE ×2 (07:12→08:07)
[2018-05-12] MEDS ORDERED: Midazolam 2 MG/2 ML VIAL ONE (07:12)
[2018-05-12] MEDS ORDERED: Remifentanil 1 mg/3 ml Vial IV ONE (07:15)
[2018-05-12] MEDS ORDERED: ceFAZolin 1 gm in NS 2 GM/200 ML BAG IVPB ONE (07:31)
[2018-05-12] MEDS ORDERED: Propofol 10 mg/ml 1,000 MG/100 ML VIAL ONE (08:09)
[2018-05-12] MEDS: Bupivacaine 0.25% 20 ML INJ IJ ONE ×2 (08:30→08:41)
[2018-05-12] MEDS: Lidocaine/Epinephrine 1% 1:100000 10 ML IJ ONE ×2 (08:30→08:42)
[2018-05-12] MEDS: Absorbable Gelatin Sponge Size 100 ONE ×2 (08:42→11:15)
[2018-05-12] MEDS: Thrombin Topical 5,000 Int Units Spray Kit ONE ×2 (08:42→11:15)
[2018-05-12] MEDS ORDERED: ePHEDrine 50 mg/ml Inj ONE (09:03)
[2018-05-12] MEDS ORDERED: Morphine 4 MG/ML VIAL ONE (11:02)
--- NOTE | 2018-05-12 11:57 | PCM.SURG1 ---
Surgeon's Initial Post Op Note - Surgeon's Notes Surgeon: Dr. Shahid Telegraphic Typewriter Operator: Dr. Carney PGY-4, Jami LAUA, Jake Kathleen OMS3 Type of Anesthesia: General Endo, Local Anesthesia Administered By: Dr. Trent Pre-Operative Diagnosis: Right thyroid nodule Operative Findings: Nerve identified via intraoperative nerve finding. Parathyroid gland identified on the right side Post-Operative Diagnosis: Right thyroid nodule Operation Performed: Right thyroid lobectomy with isthmus with intraoperative nerve monitoring Specimen/Specimens Removed: Right lobe and isthmus of thyroid Estimated Blood Loss: EBL {In ML}: 20 Blood Products Given: N/A Drains Used: Kalen Post-Op Condition: Fair Date of Surgery/Procedure: 05/12/18 Time of Surgery/Procedure: 07:45
[2018-05-12] MEDS: HYDROmorphone 0.5 mg/0.5 ml ISec IVP PRN ×3 (12:01→13:28)
[2018-05-12] MEDS ORDERED: Morphine 4 MG/ML VIAL IVP PRN (12:19)
[2018-05-13 01:58] VITALS: RESP 20
[2018-05-13 07:38] LABS: HEMOGLOBIN 11.7 g/dL (11.0-16.0); MEAN CELL VOLUME 92.7 fL (81.0-99.0); MEAN CORPUSCULAR HEMOGLOBIN 31.4 pg (27.0-31.0); MEAN CORPUSCULAR HGB CONC 33.9 g/dL (33.0-37.0); MEAN PLATELET VOLUME 10.5 fL (7.2-11.7); RBC 3.73 Mil/uL (3.80-5.20); RED CELL DISTRIBUTION WIDTH 15.3 % (11.5-14.5)
[2018-05-13 07:44] LABS: WHITE BLOOD COUNT 7.9 K/uL (4.8-10.8)
[2018-05-13 07:58] LABS: BLOOD UREA NITROGEN 10 mg/dL (7-17); CALCIUM 8.3 mg/dl (8.6-10.4); GFR NON-AFRICAN AMERICAN > 60
[2018-05-13 08:32] VITALS: BP 99/60; PULSE 74; TEMP 98.1; O2SAT 96
[2018-05-13] MEDS ORDERED: Potassium Chloride 20 mEq ER Tab PO ONE ×2 (09:15→10:15)
--- NOTE | 2018-05-13 09:26 | CP.PCM.DIS ---
Provider - Provider Date of Admission: 05/12/18 12:06 Attending physician: Jeff Shahid MD Consults: none Time Spent in preparation of Discharge (in minutes): 30 Diagnosis - Discharge Diagnosis (1) Thyroid nodule Status: Resolved Hospital Course - Lab Results Lab Results: Most Recent Lab Values WBC 7.9 K/uL (4.8-10.8) D 05/13/18 07:31 RBC 3.73 Mil/uL (3.80-5.20) L 05/13/18 07:31 Hgb 11.7 g/dL (11.0-16.0) 05/13/18 07:31 Hct 34.6 % (34.0-47.0) 05/13/18 07:31 MCV 92.7 fL (81.0-99.0) 05/13/18 07:31 MCH 31.4 pg (27.0-31.0) H 05/13/18 07:31 MCHC 33.9 g/dL (33.0-37.0) 05/13/18 07:31 RDW 15.3 % (11.5-14.5) H 05/13/18 07:31 Plt Count 200 K/uL (130-400) 05/13/18 07:31 MPV 10.5 fL (7.2-11.7) 05/13/18 07:31 Sodium 137 mmol/L (132-148) 05/13/18 07:31 Potassium 3.3 mmol/L (3.6-5.2) L 05/13/18 07:31 Chloride 102 mmol/L (98-107) 05/13/18 07:31 Carbon Dioxide 28 mmol/L (22-30) 05/13/18 07:31 Anion Gap 10 (10-20) 05/13/18 07:31 BUN 10 mg/dL (7-17) 05/13/18 07:31 Creatinine 0.5 mg/dL (0.7-1.2) L 05/13/18 07:31 Est GFR ( Amer) > 60 05/13/18 07:31 Est GFR (Non-Af Amer) > 60 05/13/18 07:31 Random Glucose 106 mg/dL (65-105) H D 05/13/18 07:31 Calcium 8.3 mg/dl (8.6-10.4) L 05/13/18 07:31 - Hospital Course Hospital Course: 27 yo F with enlarging right thyroid nodule. FNA = benign follicular (adenomatoid) nodule. Pt presented to same day surgery on 05/12/18 for right thyroid lobectomy w/ nerve monitoring. Kalen placed with 30cc output overnight since OR. POD#1, pt doing well, speaking in full sentences, no edema/hematoma. Discharge Exam - Head Exam Head Exam: ATRAUMATIC, NORMAL INSPECTION, NORMOCEPHALIC - Neck Exam Additional comments: Dressing clean/dry/intact Kalen drain in place with 30cc serosanguinous output since OR yesterday No edema/hematoma - Respiratory Exam Respiratory Exam: absent: Respiratory Distress, Stridor, NORMAL BREATHING PATTERN Additional comments: No stridor/respiratory distress Speaking clearly in full sentences - Cardiovascular Exam Cardiovascular Exam: +S1, +S2 - GI/Abdominal Exam GI & Abdominal Exam: Soft. absent: Tenderness - Neurological Exam Neurological exam: Alert, CN II-XII Intact, Oriented x3 Discharge Plan - Follow Up Plan Condition: GOOD Disposition: HOME/ ROUTINE Patient education suggested?: Yes Instructions: Thyroidectomy Additional Instructions: Keep dressing clean/dry/intact for 5 days After that may remove and shower, do not take a bath for 2 weeks Leave white steri strips in place, they will fall off on their own over time Follow up with Dr. Shahid in his office in 1-2 weeks for pathology results Sutures will absorb on their own Referrals: Jeff Shahid MD [Staff Provider] -
--- NOTE | 2018-05-14 11:57 | OP ---
PROCEDURE DATE: 05/12/2018 PREOPERATIVE DIAGNOSES: 1. Right thyroid large nodule, status post episode of a hemorrhage inside the nodule. 2. Neck pain. POSTOPERATIVE DIAGNOSES: 1. Right thyroid large nodule, status post episode of a hemorrhage inside the nodule. 2. Neck pain. PROCEDURES DONE: 1. Right thyroid lobectomy and isthmusectomy. 2. Intraoperative nerve monitoring. SURGEON: Jeff Shahid MD CATSHOVEL DRIVER: ALLAN Baez and Fiorella Carney DO, PGY-4 resident. ANESTHESIA: General endotracheal tube anesthesia. ESTIMATED BLOOD LOSS: Around 20 mL. DRAINS: None. PATHOLOGY: Large right thyroid lobe nodule with right thyroid lobe and isthmus was sent to the pathology. COMPLICATIONS: None. INTRAOPERATIVE FINDINGS: The patient had large right thyroid nodule, and due to compression of the surrounding soft tissue, the anatomy was displaced, and on intraoperative steps, this 27-year-old female was diagnosed with thyroid nodule, and recently, the patient had a hemorrhage inside the thyroid nodule, and the patient was managed conservatively, and now, the patient was consented for the right thyroid lobectomy. DESCRIPTION OF THE PROCEDURE: The patient was brought to the OR, placed supine on operating table. After induction of the anesthesia, the neck and upper chest was prepped and draped in usual sterile fashion. The skin crease incision was made. Local anesthesia was injected. Upper and lower flap was created after incising the platysma, and the dissection was carried down up to the thyroid notch as well as up to the sternal notch inferiorly, and the strap muscles were dissected. The first right side dissection, and strap muscles were divided due to the large size of the thyroid nodule, and now, the superior pole was dissected. Cricothyroid muscles were identified, and superior pole was from cricothyroid muscles, and the superior pole was ligated at three different places and divided. Now, the dissection was done to identify the inferior thyroid vein, middle thyroid vein, inferior thyroid artery as well as recurrent laryngeal nerve and parathyroid superior and inferior, and intraoperative nerve monitor was used, and the nerve appeared to be intact throughout the case and the branches of inferior thyroid artery were taken down, and the parathyroid was also stripped from the thyroid capsule to prevent the damage, and recurrent laryngeal nerve was dissected at the tubercle of [place]anth[place] and . Jeff Shahid MD [facility] # [id number]
== END 2018-05-13 12:40 | disposition home or self-care (01) ==
LOC: C.SDS 05:43 → C.9S 12:06 → C.3T 21:08
PROVIDERS: ADMIT Surgery Surgical Critical Care; ATTEND Surgery Surgical Critical Care
DX: E04.1 Nontoxic single thyroid nodule (principal)
CPT/HCPCS: 36415; 60210; 80048; 85027; 88305; G0378; J0131; J0690; J1170; J2250; J2270; J2405; J2704; J3010; J7120

== ENCOUNTER 2018-05-27 12:38 | Outpatient (CLI) | payer OTHER | END 2018-05-27 12:39 | disposition home or self-care (01) | LOC: C.LAB 12:38 ==